=== PATIENT | female | born 1950 | race Caucasian/White ===

== ENCOUNTER 2024-06-16 10:06 | Emergency (ER) | payer MEDICARE, SELFPAY ==
--- NOTE | ~2024-06-16 | XR_ITS ---
EXAMINATION: XR CHEST CLINICAL INFORMATION: ngt insertion COMPARISON: Chest radiograph earlier today at 10:55 AM TECHNIQUE: Frontal view of the chest was obtained at 12:44 PM. FINDINGS: No interval change aside from placement of an NG tube with its tip just within the stomach. The side-port is at the GE junction. This should be advanced. XR/XR chest 1V IMPRESSION: NG tube tip just within the stomach. This should be advanced. Electronically signed by: Jose Martin MD 06/16/2024 03:11 PM [facility]
--- NOTE | ~2024-06-16 | XR_ITS ---
EXAMINATION: XR CHEST CLINICAL INFORMATION: generalized weakness COMPARISON: None available. TECHNIQUE: Frontal view of the chest was obtained. FINDINGS: A right chest wall port is present with its tip in the distal SVC. Degenerative changes are present in the spine with scoliosis convex to the right. The heart and pulmonary vessels appear normal. No infiltrates, pleural effusions or lung masses. Surgical clips are present in the gallbladder fossa XR/XR chest 1V IMPRESSION: No acute intrathoracic disease. Electronically signed by: Jose Martin MD 06/16/2024 12:30 PM [facility]
--- NOTE | ~2024-06-16 | CT_ITS ---
EXAMINATION: CT ABDOMEN AND PELVIS WITHOUT CONTRAST CLINICAL INFORMATION: History of ovarian cancer. Abdominal pain. COMPARISON: None available. TECHNIQUE: Multidetector volumetric imaging was performed from the superior aspect of the liver through the pubic symphysis. Sagittal and coronal reformatted images were obtained on the technologist's workstation. This CT examination was performed using dose optimization techniques as appropriate, variously including the following: *Automated exposure control *Adjustment of mA and/or kV according to patient size (this includes techniques or standardized protocols for targeted exams where dose is matched to indication/reason for exam; i.e. extremities or head) *Use of iterative reconstruction technique DLP: 502 mGy-cm FINDINGS: LUNG BASES: No pleural or pericardial effusion. Nonspecific distal esophageal wall thickening. LIVER, GALLBLADDER, AND BILIARY TREE: The noncontrast liver is decreased in attenuation. No biliary ductal dilatation is present. The gallbladder is surgically absent. PANCREAS: Atrophic changes. SPLEEN: Not enlarged. ADRENAL GLANDS: No adrenal mass. KIDNEYS AND URETERS: The kidneys are symmetric in size. No hydronephrosis, hydroureter, or calculi seen. No perinephric stranding. BLADDER: Decompressed and therefore incompletely evaluated. GASTROINTESTINAL TRACT: There is marked dilatation of the mid small bowel loops measuring up to 4.5 cm with transition in the low pelvis. There is fecalization of the obstructed small bowel. There are multiple nodular densities within the peritoneum measuring 2.0 x 2.6 cm on image 73 of series 3 as well as 1.2 x 1.4 cm and 1.4 x 1.7 cm on image 70 of series 3 and 1.7 x 2.1 cm on image 67 of series 3. There is retractile appearance within the mesentery. The colon is decompressed with scattered diverticula. ABDOMINAL WALL: Multiple nodular opacities within the anterior abdominal wall subcutaneous tissues. The largest measures 1.5 x 2.6 cm. LYMPH NODES: Prominent mesenteric lymph nodes. VASCULAR: Normal caliber abdominal aorta. PELVIC VISCERA: Left adnexal cystic and solid lesion measures 4.3 x 3.0 x 6.6 cm. Right adnexal cystic and solid lesion measures 5.5 x 4.6 x 5.1 cm. No free fluid in the pelvis. OSSEOUS STRUCTURES: No destructive bone lesions. CT/CT abdomen pelvis wo IV con IMPRESSION: Markedly dilated loops of mid small bowel measuring up to 4.5 cm with transition zone in the low pelvis consistent with small bowel obstruction. There is a cystic and solid right adnexal mass measuring 5.5 x 4.6 x 5.1 cm that may serve as the lead point for obstruction. There is fecalized small bowel contents. There are multiple nodular opacities within the peritoneum as well as within the anterior abdominal wall. This may represent additional sites of malignancy given the reported history of ovarian cancer. Cystic and solid lesion in the left adnexa measures 4.2 x 3.0 x 4.6 cm. PET/CT may be considered. Electronically signed by: Dmitri Buck MD 06/16/2024 12:19 PM [facility]
[2024-06-16 10:12] LABS: Prothrombin Time Whole Bld POC 14.2 sec (11.1-13.5); ~PT, ~INR - Anti Coag Clinic 1.2 (0.9-1.1)
[2024-06-16 10:13] VITALS: BP 98/70; PULSE 130; O2SAT 97
[2024-06-16 10:14] LABS: Glucose, Whole Blood 225 mg/dL (60-115)
[2024-06-16 10:16] VITALS: BP 127/86; PULSE 132; RESP 18; TEMP 37.7; O2SAT 97; BMI 27.9
--- NOTE | 2024-06-16 10:16 | ECG_ITS ---
Test Reason : ?STROKE Blood Pressure : / mmHG Vent. Rate : 124 BPM Atrial Rate : 124 BPM P-R Int : 126 ms QRS Dur : 078 ms QT Int : 336 ms P-R-T Axes : 065 -04 106 degrees QTc Int : 482 ms Sinus tachycardia with Premature atrial complexes Left ventricular hypertrophy with repolarization abnormality ( R in aVL ) Abnormal ECG No previous ECGs available Referred By: Rigo Juarez Electronically Signed By:ALFIE PALENCIA
--- NOTE | 2024-06-16 10:22 | ED.GENADULT ---
HPI - General Adult General Chief complaint: Stroke Stated complaint: ?STROKE,RT FACIAL DROOP,LT WKNSS, LKW 1 HR PER EMS Time Seen by Provider: 06/16/24 10:08 Source: patient and EMS Mode of arrival: EMS Limitations: no limitations History of Present Illness ED Provider: DR. 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 No bowel movement for 2-3 days, not passing flatus. Related Data Home Medications ?Medication ?Instructions ?Recorded ?Confirmed amlodipine 5 mg tablet 5 mg PO DAILY 06/16/24 06/16/24 apixaban 5 mg tablet (Eliquis) 5 mg PO BID 06/16/24 06/16/24 atorvastatin 10 mg tablet 10 mg PO BEDTIME 06/16/24 06/16/24 folic acid 1 mg tablet 1 mg PO DAILY 06/16/24 06/16/24 insulin glargine 100 unit/mL 15 unit subcut BEDTIME 06/16/24 06/16/24 subcutaneous solution lorazepam 0.5 mg tablet 0.5 mg PO TID PRN Anxiety 06/16/24 06/16/24 omeprazole 20 mg capsule,delayed 20 mg PO BID 06/16/24 06/16/24 release ondansetron 4 mg disintegrating 4 mg PO Q8H PRN Nausea And Vomiting 06/16/24 06/16/24 tablet prochlorperazine maleate 10 mg 10 mg PO QID PRN nausea/vomiting 06/16/24 06/16/24 tablet Allergies Allergy/AdvReac Type Severity Reaction Status Date / Time rosuvastatin AdvReac Unresponsiv Verified 06/16/24 10:18 e Review of Systems Review of Systems: All other systems are reviewed and are negative Constitutional: Reports as per HPI and Reports no additional constitutional complaints Eyes: Reports as per HPI and Reports no additional eye complaints Reports system reviewed and no additional complaints, except as documented Cardiovascular: Reports as per HPI and Reports no additional cardiovascular complaints Respiratory: Reports as per HPI and Reports no additional respiratory complaints Gastrointestinal: Reports as per HPI and Reports no additional gastrointestinal complaints Genitourinary: Reports no additional female genitourinary complaints Musculoskeletal: Reports no additional musculoskeletal complaints Skin/Breast: Reports system reviewed and no additional complaints, except as docu Psychiatric: Reports no additional psychiatric complaints Endocrine: Reports no additional endocrine complaints Hematologic/Lymphatic: Reports no additional hematologic/lymphatic complaints Allergic/Immunologic: Reports no additional allergic/immunologic complaints Reports system reviewed and no additional complaints, except as documented and Reports Abnormal speech present [facility] Social History Social History Alcohol intake: former Smoked in Last 30 Days: No Use of substances other than those prescribed or required for medical reasons: No Advance Directives: No Advance Directives Information Provided: Yes Physical Exam ED Vital Signs: Vital Signs - 24 hr 06/16/24 10:16 06/16/24 12:57 06/16/24 13:54 Temperature 99.9 F Pulse Rate 132 H 116 H 123 H Respiratory Rate 18 18 18 Blood Pressure 127/86 124/60 122/73 Pulse Oximetry 97 99 97 Oxygen Delivery Method Room Air Room Air Room Air 06/16/24 14:28 Temperature Pulse Rate 120 H Respiratory Rate 16 Blood Pressure 123/70 Pulse Oximetry 99 Oxygen Delivery Method Room Air BMI result Body Mass Index 27.9 Vital signs have been reviewed and appear to be correct. Blood pressure elevated. Heart rate normal. Respiratory rate normal. Temperature normal. Oxygen saturation normal. Appearance: Alert. Oriented X3. No acute distress. Head: Normal external exam. Normocephalic. Atraumatic. No Santana signs noted. No raccoon eyes noted Eyes: PERRLA. EOMI. Conjunctiva and sclera normal. Eyelids normal. ENT: TM's Normal. Pharynx normal. Uvula midline. Moist mucous membranes. No trismus noted. No drooling noted. No muffled voice noted. Neck: Normal inspection. Neck supple. FROM. No adenopathy. Thyroid Normal. No meningeal signs. No neck mass noted. CVS: Normal heart rate and rhythm. Heart sound normal. No murmurs noted. Pulses normal throughout. Respiratory: No respiratory distress. Painless inspiration. Breath sounds normal. No wheezes/rales/rhonchi noted. Chest nontender. No accessory muscle usage noted or decreased air movement noted. Abdomen: Distended, no tenderness, no rebound tenderness. Bowel sounds normal in all 4 quadrants. No distention noted. No organomegaly noted. No visible injury noted. Back: No CVA tenderness. Full range of motion noted. Skin: Skin warm and dry. Normal skin color. Normal skin turgor. No rashes/lesions/lacerations noted. Extremities: No lower extremity edema. Extremities exhibit normal range of motion. Extremities nontender. Neuro: Left facial droop, left upper extremity pronator drift, left lower extremity weakness as patient confirm this is 2 weeks and patient is on Eliquis. 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 intake with constant vomiting, no bowel movement for few days, not passing flatus, CT abdomen pelvis consistent with small-bowel obstruction, NG tube was placed. because patient has high bandemia received 1 empirical dose of ceftriaxone. Patient's record and care is at [facility] for continuity of care the case was discussed with Dr. Davis at [facility] who recommended to send the patient to the ER for further evaluation. Time: 12:31 Medications Administered Discontinued Medications Generic Name Dose Route Start Last Admin Trade Name Freq PRN Reason Stop Dose Admin Ceftriaxone Sodium 1 gm 06/16/24 11:52 06/16/24 12:33 Ceftriaxone Sodium 1 Gm Vial IVPUSH 06/16/24 11:53 1 gm ONCE ONE Administration Sodium Chloride 1,000 mls @ 999 mls/hr 06/16/24 10:13 06/16/24 11:58 Ns IV 06/16/24 11:13 Infused .Q1H1M ONE Infusion Medical Decision Making Differential Diagnosis Differential Diagnoses: The differential diagnosis associated with the presentation includes ( Stroke, sepsis, pneumonia, pneumothorax, small-bowel obstruction, colitis, gastritis, chemotherapy, dehydration, electrolyte derangement, severe anemia.) Admission/Observation Consideration of admission/observation: Escalation of care including admission/observation considered Consult Healthcare Provider Management of the patient was discussed with: [facility] ( Dr. Davis) Lab Data MDM Lab Attestation statement: I reviewed the patient's lab results. 06/16/24 10:40 06/16/24 10:40 Labs: Lab Results 06/16/24 06/16/24 Range/Units 10:09 10:40 WBC 2.9 L (4.8-10.8) X10*3/uL RBC 4.18 L (4.20-5.50) X10*6/uL Hgb 12.3 (12.0-16.0) g/dl Hct 35.3 L (37.0-47.0) % MCV 84.4 (80.0-98.0) fL MCH 29.4 (27.0-33.0) pg MCHC 34.8 (31.0-35.0) g/dl RDW 18.8 H (11.0-16.0) % Plt Count 581 H (160-400) X10*3/uL MPV 10.1 (9.4-12.3) fL Immature Gran % (Auto) Cancelled Neut % (Auto) Cancelled Lymph % (Auto) Cancelled [place] % (Auto) Cancelled Eos % (Auto) Cancelled Baso % (Auto) Cancelled Lymph # (Auto) Cancelled [place] # (Auto) Cancelled Eos # (Auto) Cancelled Baso # (Auto) Cancelled Abs Immat Gran (auto) Cancelled Absolute Neuts (auto) Cancelled Absolute Nucleated RBC 0.000 (0.0-0.012) X10*3/uL Nucleated RBC % (auto) 0.0 (0.0-0.2) /100WBC Neutrophils % (Manual) 31 L (45-73) % Band Neutrophils % 16 H (3-5) % Lymphocytes % (Manual) 46 H (20-40) % Atypical Lymphs % (Man) 2 (0-6) % Eosinophils % (Manual) 1 (0-4) % Metamyelocytes % 4 % Abs Neuts (Manual) 1.4 L (2.0-8.3) X10*3/uL Lymphocytes # (Manual) 1.3 (1.2-4.9) X10*3/uL Atyp Lymphs # (Manual) 0.1 x10*3/uL Metamyelocytes # 0.1 X10*3/uL Platelet Estimate INCREASED (NORMAL) Large Platelets PRESENT Plt Morphology Comment NOTED RBC Morphology NORMAL Whole Blood PT 14.2 H (11.1-13.5) sec Whole Blood INR 1.2 H (0.9-1.1) Sodium 135 (135-145) mmol/L Potassium 3.6 (3.3-5.1) mmol/L Chloride 80 L (96-108) mmol/L Carbon Dioxide 32 H (22-29) mmol/L Anion Gap 27 H (12-20) BUN 45 H (9-16) mg/dL Creatinine 1.36 (0.5-1.4) mg/dL Estim Creat Clear Calc 34.0 Estimated GFR 38 POC Glucose 225 H (60-115) mg/dL Random Glucose 220 H (60-115) mg/dL Calcium 9.0 (8.4-10.2) mg/dL Total Bilirubin 0.5 (0.0-1.0) mg/dL Direct Bilirubin 0.1 (0.0-0.5) mg/dL AST 26 (5-31) U/L ALT < 6 (0-31) U/L Alkaline Phosphatase 81 (39-117) U/L Troponin I High Sens 21.2 H (<3.5-17.0) ng/L Total Protein 6.7 (6.5-8.0) g/dL Albumin 3.2 L (3.5-5.0) g/dL Lipase 4 L (8-78) U/L Independent Interpretation I performed an independent interpretation of an: Plain X-Ray ( no acute intrathoracic pathology.) and CT Scan ( Abdomen and pelvis:Markedly dilated loops of mid small bowel measuring up to 4.5 cm with transition zone in the low pelvis consistent with small bowel obstruction. There is a cystic and solid right adnexal mass measuring 5.5 x 4.6 x 5.1 cm that may serve as the lead point for obstruction. Ther) Radiology Impression Discussion of test interpretation with radiology: I have reviewed the radiologist's reading. Discharge Plan Discharge Clinical Impression: Small bowel obstruction Patient Disposition: [facility] Transfer Details: [facility] Prescriptions: No Action insulin glargine 100 unit/mL Solution 15 unit SUBCUT BEDTIME atorvastatin 10 mg tablet 10 mg PO BEDTIME amlodipine 5 mg tablet 5 mg PO DAILY prochlorperazine maleate 10 mg tablet 10 mg PO QID PRN (Reason: nausea/vomiting) omeprazole 20 mg capsule,delayed release(DR/EC) 20 mg PO BID folic acid 1 mg Tablet 1 mg PO DAILY Eliquis 5 mg tablet 5 mg PO BID lorazepam 0.5 mg Tablet 0.5 mg PO TID PRN (Reason: Anxiety) ondansetron 4 mg Tablet,Disintegrating 4 mg PO Q8H PRN (Reason: Nausea And Vomiting) Referrals: Sanjay Medina MD [Physician] - Naomi Vargas NP [Primary Care Provider] - Print Language: Mexican
[2024-06-16] MEDS: 0.9 % Sodium Chloride 1,000 ML 999 ML IV (10:28)
--- NOTE | 2024-06-16 10:43 | PC.NURSE ---
Pat arrived from home via ems , per ems brother reports she passed out while on the toilet. Upon ems arrival patient was still on the toilet with left sided deficits. Upon arrival patient alert and oriented but with intermittent confusion. Patient vomiting brown foul smelling vomit that appears to be fecal matter. 20g placed in left forearm, fluids running per order. Patient reports that she last had chemo for 3 ovarian tumors last sun and has been vomiting since . Reports she was going to see a colorectal MD for a CT for a potential obstruction caused by the tumors. Patient also reports weeks ago had a ct that showed an old stroke- states has been having left sided weakness for about 2 weeks.
[2024-06-16 10:47] LABS: Hematocrit 35.3 % (37.0-47.0); Hemoglobin 12.3 g/dl (12.0-16.0); Mean Corpuscular HGB Conc 34.8 g/dl (31.0-35.0); Mean Corpuscular Hemoglobin 29.4 pg (27.0-33.0); Mean Corpuscular Volume 84.4 fL (80.0-98.0); Mean Platelet Volume 10.1 fL (9.4-12.3); Platelet Count 581 X10*3/uL (160-400); Red Blood Count 4.18 X10*6/uL (4.20-5.50); Red Cell Distribution Width 18.8 % (11.0-16.0)
[2024-06-16 10:50] LABS: WBC ABN SCTR FOR CBC 1
[2024-06-16 11:07] LABS: Alanine Aminotransferase < 6 U/L (0-31); Albumin Level 3.2 g/dL (3.5-5.0); Alkaline Phosphatase 81 U/L (39-117); Anion Gap 27 (12-20); Aspartate Amino Transferase 26 U/L (5-31); Bilirubin Direct 0.1 mg/dL (0.0-0.5); Bilirubin Total 0.5 mg/dL (0.0-1.0); Blood Urea Nitrogen 45 mg/dL (9-16); Carbon Dioxide 32 mmol/L (22-29); Chloride 80 mmol/L (96-108); Estimated Glomerular Filt Rate 38; Glucose Random 220 mg/dL (60-115); Lipase 4 U/L (8-78); Potassium 3.6 mmol/L (3.3-5.1); Sodium 135 mmol/L (135-145); Total Protein 6.7 g/dL (6.5-8.0)
[2024-06-16 11:13] LABS: Troponin-I High Sensitivity 21.2 ng/L (<3.5-17.0)
[2024-06-16 11:22] LABS: Neutrophils Percent Manual 31 % (45-73)
[2024-06-16 11:25] LABS: Atypical Lymphs Percent Manual 2 % (0-6); Band Neutrophils Percent 16 % (3-5); Eosinophils Percent Manual 1 % (0-4); Lymphocytes Percent Manual 46 % (20-40); Metamyelocytes Percent 4 %
[2024-06-16 11:26] LABS: RBC Morphology NORMAL
[2024-06-16 11:27] LABS: Large Platelet PRESENT; Platelet Estimate INCREASED (NORMAL); Platelet Morphology Comment NOTED
[2024-06-16 11:30] LABS: Atypical Lymph Absolute Manual 0.1 x10*3/uL; Lymphocytes Absolute Manual 1.3 X10*3/uL (1.2-4.9); Metamyelocytes Absolute 0.1 X10*3/uL; Neutrophils Absolute Manual 1.4 X10*3/uL (2.0-8.3); White Blood Count 2.9 X10*3/uL (4.8-10.8)
--- NOTE | 2024-06-16 12:17 | PC.NURSE ---
Patient with no further episodes of vomiting at this time, per provider okay to give patient ice chips
--- NOTE | 2024-06-16 12:32 | PC.NURSE ---
Tech unable to obtained 2nd set of cultures despite multiple attempts. Provider aware stating to give abt
[2024-06-16] MEDS: cefTRIAXone sodium 1 GM VIAL IVPUSH (12:33)
--- NOTE | 2024-06-16 12:56 | PC.NURSE ---
NG tube placed, tolerated well, xray / provider at bedside- to confirm placement
[2024-06-16 12:57] VITALS: BP 124/60; PULSE 116; RESP 18; O2SAT 99
--- NOTE | 2024-06-16 13:03 | PC.NURSE ---
brother cierra who can be reached at [phone] updated on current condition to transfer to [facility]
--- NOTE | 2024-06-16 13:38 | PC.NURSE ---
Patient vomited x 1 time after NG placement , provider stating to advance NG tube further and turn up suction. Output via NG tube 200mls dark brown foul smelling output. Patient reports less pain in abdomen
[2024-06-16 13:54] VITALS: BP 122/73; PULSE 123; RESP 18; O2SAT 97
--- NOTE | 2024-06-16 14:23 | PHA.MEDREC ---
Pharmacy Consult ? Medication Reconciliation Pharmacy has completed the medication reconciliation. Spoke to patient at bedside, she was able to confirm all her medications. Stated she never got her folic acid and atorvastatin but was supposed to start them. Also states she no longer takes the acetaminophen ER, empagliflozin, medroxyprogesterone, Miralax powder, or Senns. Took her nausea meds this morning and the rest yesterday.
[2024-06-16 14:28] VITALS: BP 123/70; PULSE 120; RESP 16; O2SAT 99
--- NOTE | 2024-06-16 15:44 | PC.NURSE ---
Patient vomited x 1 , provider aware, stating will order zofran . NG tube with 300mls of dark brown output at this time
--- NOTE | 2024-06-16 16:09 | PC.NURSE ---
Report given to [facility]
[2024-06-16] MEDS: ondansetron HCL 4 MG/2 ML VIAL IVPUSH (16:11)
--- NOTE | 2024-06-16 16:15 | PC.NURSE ---
Brother Mark updated that patient will be leaving for [facility] within the hour. Patient reports feeling better after NG tube placement. Medicated per mar, denies pain or discomfort
[2024-06-16 17:14] LABS: Appearance Urine Turbid; Color Urine Dark Yellow; Glucose Urine UA Negative (Negative); Leukocyte Esterase Urine Moderate (2+) (Negative); Nitrite Urine Negative (Negative); Specific Gravity - Urine 1.025 (1.005-1.025); UMIC TRIGGER UACC YES; Urine Blood Small (1+) (Negative); Urine Ketones Trace mg/dL (Negative); Urine Protein 30 (1+) mg/dL (Neg-Trace)
--- NOTE | 2024-06-16 17:24 | PC.NURSE ---
transferred via EMS to [facility]
[2024-06-16 17:46] LABS: Bacteria Urine 2+ (None Seen); Granular Casts Urine Present; RBC Urine 0-2 /HPF (0-2); UACC Culture Trigger YES; WBC Urine >50 /HPF (0-5)
== END 2024-06-16 17:25 | disposition short-term general hospital (02) ==
PROVIDERS: Emergency Provider Emergency Medicine; PCP Nurse Practitioner Family
DX: K56.609 Unspecified intestinal obstruction, unspecified as to partial versus complete obstruction (principal); R53.1 Weakness; R29.810 Facial weakness; R10.9 Unspecified abdominal pain; R00.0 Tachycardia, unspecified; Z85.43 Personal history of malignant neoplasm of ovary; Z79.899 Other long term (current) drug therapy; Z79.01 Long term (current) use of anticoagulants; Z79.60 Long term (current) use of unspecified immunomodulators and immunosuppressants
CPT/HCPCS: 36415; 71045; 74176; 80048; 80076; 81001; 82947; 83690; 84484; 85007; 85027; 85610; 87040; 87086; 93005; 96361; 96374; 96375; 99285; J0696; J2405

== ENCOUNTER → 2024-06-16 10:16 | Outpatient (BNV) | payer MEDICARE, SELFPAY | PROVIDERS: Emergency Provider Emergency Medicine; PCP Nurse Practitioner Family; Visit Provider Internal Medicine | DX: R94.31 Abnormal electrocardiogram [ECG] [EKG] (principal) | CPT/HCPCS: 93010 ==